=== PATIENT | female | born 1980 | race Caucasian/White ===

== ENCOUNTER 2017-06-18 09:35 | Emergency (ER) | payer SELFPAY ==
[~2017-06-18 09:35] MED LIST: SYNT175T PO; ZOFR4TAB3 SL
[2017-06-18 09:52] VITALS: BP 133/63; PULSE 101; RESP 20; TEMP 98.6; O2SAT 100
[2017-06-18] MEDS ORDERED: LEVO.15 PO (09:54)
--- NOTE | 2017-06-18 10:56 | PD ---
HPI Chief Complaint: Musculoskeletal Complaint Time Seen by Provider: 10:52 Travel History International Travel<30 days: No Contact w/Intl Traveler<30days: No Traveled to known affect area: No History of Present Illness HPI 37-year-old female patient presents to the ER today, states that she had tripped at home and twisted her left ankle, felt a snap, and is having pain, worse with weightbearing. She denies any other issues or injuries. Modifying Factors: None Associated Signs & Symptoms: Left ankle injury Risk Factors: None PFSH Past Medical History Asthma: Yes Diabetes: No Diminished Hearing: No Endocrine: Yes (GRAVES DISEASE) Immunizations Current: No Radiation Therapy: Yes (THYROID) Thyroid Disease: Yes (HYPOTHYROID) ?: Not LMP: 2 1/2 WEEKS : 3 Para: 3 Ovarian Cysts: Yes Past Surgical History Section: Yes Tonsillectomy: Yes Social History Alcohol Use: No Tobacco Use: No Substance Use: No Allergies-Medications (Allergen,Severity, Reaction): Coded Allergies: iodine (Unverified Allergy, Severe, 06/18/17) methimazole (Unverified Allergy, Severe, RASH, 06/18/17) potassium iodide (Unverified Allergy, Severe, 06/18/17) povidone-iodine (Unverified Allergy, Severe, 06/18/17) shellfish derived (Unverified Allergy, Severe, SWELLING, HIVES, 06/18/17) sodium iodide (Unverified Allergy, Severe, 06/18/17) sodium iodide (Unverified Allergy, Severe, 06/18/17) albuterol (Unverified Adverse Reaction, Severe, HEART RATE INCREASES, ) Reported Meds & Prescriptions Reported Meds & Active Scripts Active Reported Synthroid (Levothyroxine Sodium) 150 Mcg Tab 150 Mcg PO DAILY Review of Systems Except as stated in HPI: all other systems reviewed are Neg Physical Exam Narrative GENERAL: Well-developed young female patient currently in mild distress. Awake and oriented 3. SKIN: Focused skin assessment warm/dry. HEAD: Atraumatic. Normocephalic. EYES: Pupils equal and round. No scleral icterus. No injection or drainage. ENT: No nasal bleeding or discharge. Mucous membranes pink and moist. NECK: Trachea midline. No JVD. Left ankle: There is notable tenderness and edema over the left lateral malleolus. No obvious deformities identified. Neurovascularly intact. No tenderness on palpation the knee. MUSCULOSKELETAL: No obvious deformities. No clubbing. No cyanosis. No edema. NEUROLOGICAL: Awake and alert. No obvious cranial nerve deficits. Motor grossly within normal limits. Normal speech. PSYCHIATRIC: Appropriate mood and affect; insight and judgment normal. Data Data Last Documented VS Vital Signs Date Time Temp Pulse Resp B/P (MAP) Pulse Ox O2 Delivery O2 Flow Rate FiO2 06/18/17 09:52 98.6 101 20 133/63 (86) 100 Orders Orders Ankle, Complete ([id number]) (06/18/17 10:52) Ibuprofen (Motrin) (06/18/17 11:45) Splint Or Brace Apply/Monitor (06/18/17 11:35) Crutches (06/18/17 11:35) Ed Discharge Order (06/18/17 11:35) MDM Medical Decision Making Medical Screen Exam Complete: Yes Emergency Medical Condition: Yes Medical Record Reviewed: Yes Differential Diagnosis Left ankle injury: Strain versus fracture Narrative Course X-rays did not reveal any signs of acute fractures. At this point, my plan would be to release the patient would follow-up to primary care doctor. Return for any worsening in pain, or new symptoms as needed. Ice, elevate the area. Decreased weightbearing with crutches. The plan was discussed with her and she states understanding. Diagnosis Primary Impression: Ankle sprain Med/Other Pt SpecificInfo: Prescription(s) given Scripts Ibuprofen (Motrin Ib) 200 Mg Tablet 600 MG PO QID Y for PAIN SCALE 1 TO 10, #20 Prov: Matthew Navarro MD 06/18/17 Disposition: 01 DISCHARGE HOME Condition: Stable Matthew Navarro MD Jun 18, 2017 10:56
--- NOTE | 2017-06-18 11:32 | RADRPT ---
EXAM DATE/TIME: 06/18/2017 10:57 [facility] COMPARISON: No previous studies available for comparison. INDICATIONS : Fell down steps yesterday. MEDICAL HISTORY : None. SURGICAL HISTORY : None. ENCOUNTER: Initial ACUITY: 1 day PAIN SCORE: 7/10 LOCATION: Left Lateral ankle FINDINGS: Soft tissues are swollen laterally. Bones of the left ankle are intact and normally aligned. No radio paque foreign body. CONCLUSION: Soft tissue swelling without fracture or subluxation. Vincent Cornelius MD on June 18, 2017 at 11:30 Board Certified Radiologist. This report was verified electronically.
[2017-06-18] MEDS ORDERED: IBUP-1129 PO (11:37)
[2017-06-18] MEDS ORDERED: IBUPROFEN 600 MG TAB PO ONE (11:45)
== END 2017-06-18 12:15 | disposition home or self-care (01) ==
LOC: PHEFT 09:35
DX: S93.402A Sprain of unspecified ligament of left ankle, initial encounter (principal); W18.40XA Slipping, tripping and stumbling without falling, unspecified, initial encounter; Y92.009 Unspecified place in unspecified non-institutional (private) residence as the place of occurrence of the external cause
CPT/HCPCS: 73610; 99283; E0113; L1906